=== PATIENT | male | born 1985 | race Caucasian/White ===

== ENCOUNTER 2016-05-29 16:41 | Inpatient (IN) | payer MEDICAID, OTHER ==
--- NOTE | 2016-05-29 17:13 | ED ---
General Adult HPI - General Chief complaint: Psychiatric Symptoms Stated complaint: mental health Time Seen by Provider: 05/29/16 16:57 Source: patient, RN notes reviewed Mode of arrival: ambulatory Limitations: no limitations - History of Present Illness Initial comments: Patient 31-year-old male who presents emergency room today with a chief complaint of suicidal ideation. Patient does admit that he's been having increased thoughts of hurting himself. He gives an example of driving in traffic and making it look like an accident.Patient states that he's been under a lot of pressure and stress. States been drinking off and on. States last drink last night. Patient denies any homicidal thoughts or plans. Denies any auditory or visual hallucinations. Denies any other complaints associated symptoms. - Related Data Home Medications Medication Instructions Recorded Confirmed No Known Home Medications [No 05/29/16 05/29/16 Known Home Medications] Allergies Allergy/AdvReac Type Severity Reaction Status Date / Time No Known Allergies Allergy Verified 05/29/16 16:59 Review of Systems ROS Statement: Those systems with pertinent positive or pertinent negative responses have been documented in the HPI. ROS Other: All systems not noted in ROS Statement are negative. Past Medical History Past Medical History: No Reported History History of Any Multi-Drug Resistant Organisms: None Reported Past Surgical History: Orthopedic Surgery Additional Past Surgical History / Comment(s): finger surgery Past Psychological History: Anxiety, Depression Smoking Status: Current every day smoker Past Alcohol Use History: Occasional Past Drug Use History: None Reported General Exam - General Exam Comments Initial Comments: General: The patient is awake and alert, in no distress, and does not appear acutely ill. Eye: Pupils are equal, round and reactive to light, extra-ocular movements are intact. No nystagmus. There is normal conjunctiva bilaterally. No signs of icterus. Ears, nose, mouth and throat: There are moist mucous membranes and no oral lesions. Neck: The neck is supple, there is no tenderness or JVD. Cardiovascular: There is a regular rate and rhythm. No murmur, rub or gallop is appreciated. Respiratory: Lungs are clear to auscultation, respirations are non-labored, breath sounds are equal. No wheezes, stridor, rales, or rhonchi. Musculoskeletal: Normal ROM, no tenderness. Strength 5/5. Sensation intact. Pulses equal bilaterally 2+. Neurological: A&O x 3. CN II-XII intact, There are no obvious motor or sensory deficits. Coordination appears grossly intact. Speech is normal. Skin: Skin is warm and dry and no rashes or lesions are noted. Psychiatric: Cooperative. Limitations: no limitations Course Vital Signs 05/29/16 16:53 Temperature 98.2 F Pulse Rate 79 Respiratory 18 Rate Blood Pressure 133/79 O2 Sat by Pulse 98 Oximetry Medical Decision Making - Medical Decision Making Patient seen by mental here in the emergency room. They've recommended admit. Patient will sign himself in. - Lab Data Lab Results 05/29/16 Range/Units 17:01 Urine Opiates Screen Not Detected (NotDetected) Ur Oxycodone Screen Not Detected (NotDetected) Urine Methadone Screen Not Detected (NotDetected) Ur Propoxyphene Screen Not Detected (NotDetected) Ur Barbiturates Screen Not Detected (NotDetected) U Tricyclic Antidepress Not Detected (NotDetected) Ur Phencyclidine Scrn Not Detected (NotDetected) Ur Amphetamines Screen Not Detected (NotDetected) U Methamphetamines Scrn Not Detected (NotDetected) U Benzodiazepines Scrn Not Detected (NotDetected) Urine Cocaine Screen Not Detected (NotDetected) U Marijuana (THC) Screen Detected H (NotDetected) Disposition Clinical Impression: Suicidal ideation Disposition: TRANSFER TO PSYCH HOSP/UNIT Condition: Stable Time of Disposition: 19:40
[2016-05-29 21:33] VITALS: BMI 23.1
[2016-05-30] MEDS ORDERED: LORazepam 1 MG TAB PO PRN (04:46)
[2016-05-30] MEDS ORDERED: MAGNESIUM HYDROXIDE 2,400 MG/10 ML CUP PO PRN (04:46)
[2016-05-30] MEDS ORDERED: ZIPRASIDONE 20 MG VIAL IM PRN (04:46)
[2016-05-30] MEDS ORDERED: ACETAMINOPHEN TAB 325 MG TAB PO PRN (04:46)
[2016-05-30] MEDS ORDERED: MAG HYDROX/AL HYDROX/SIMETH 30 ML CUP PO PRN (04:46)
[2016-05-30] MEDS: NICOTINE 14MG/24HR PATCH TRANSDERM SCH ×2 (12:11→17:28)
--- NOTE | 2016-05-30 13:20 | CONS ---
DATE OF CONSULTATION: CHIEF COMPLAINT: Anxiety, depression. HISTORY OF PRESENT ILLNESS: It is requested I see this gentleman in consult, but he is not available at this time. He has a past history of hypertension and an old collarbone fracture on the left. He has not been seen in the office for some time. He will be reassessed for his history and physical once he becomes available.
[2016-05-30 14:38] LABS: Appearance,Urine Clear (Clear); Bilirubin,Urine Negative (Negative); Glucose,Urine (UA) Negative (Negative); Ketones,Urine Negative (Negative); Leukocyte Esterase,Urine Negative (Negative); Nitrite,Urine Negative (Negative); Protein,Urine Negative (Negative); Specific Gravity,Urine 1.004 (1.001-1.035); UA Billing (MACRO vs. MICRO) CHEM; Urobilinogen,Urine <2.0 mg/dL (<2.0)
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
[2016-05-30] MEDS: SERTRALINE 50 MG TAB PO SCH (17:24)
[2016-05-31 08:36] LABS: Basophils # (A) 0.1 k/uL (0-0.2); Basophils % (A) 0 %; CH 30.9; CHCM 32.8; Eosinophils # (A) 0.2 k/uL (0-0.7); Eosinophils % (A) 1 %; HCT 41.5 % (39.0-53.0); HGB 13.7 gm/dL (13.0-17.5); Luc # (Auto) 0.14; Luc % (Auto) 1; Lymphocytes # (A) 1.9 k/uL (1.0-4.8); Lymphocytes % (A) 12 %; MCH 31.2 pg (25.0-35.0); MCV 94.5 fL (80.0-100.0); Monocytes # (A) 0.7 k/uL (0-1.0); Monocytes % (A) 5 %; Neutrophils # (A) 12.4 k/uL (1.3-7.7); Neutrophils % (A) 81 %; RBC 4.39 m/uL (4.30-5.90); RDW 12.4 % (11.5-15.5); WBC 15.3 k/uL (3.8-10.6); WBC (Perox) 15.83
[2016-05-31] MEDS: NICOTINE 14MG/24HR PATCH TRANSDERM SCH (09:03)
[2016-05-31] MEDS: SERTRALINE 50 MG TAB PO SCH (09:03)
[2016-05-31 11:09] LABS: ALT 25 U/L (21-72); AST 28 U/L (17-59); Alkaline Phosphatase 48 U/L (38-126); Anion Gap 11 mmol/L; Blood Urea Nitrogen 13 mg/dL (9-20); Calcium 9.6 mg/dL (8.4-10.2); Carbon Dioxide 27 mmol/L (22-30); Chloride 103 mmol/L (98-107); Glucose 92 mg/dL (74-99); Non-African American GFR(MDRD) >60 (>60 ml/min/1.73 sqM); Potassium 4.8 mmol/L (3.5-5.1); Sodium 141 mmol/L (137-145); Total Bilirubin 1.4 mg/dL (0.2-1.3); Total Protein 7.3 g/dL (6.3-8.2)
--- NOTE | 2016-05-31 17:15 | P.PN ---
Progress Note - Text Interval history: Patient reports that he had visiting with his last night. He relates that she would be the one for a family meeting. He seems to be tolerating the Zoloft fine. His mood overall seems to be improved. We did discuss the importance of keeping his sobriety. He does talk about a new job upcoming in 2 weeks. Mental status exam: He is alert and cooperative with the interview. His speech is fluent, not rapid or pressured. Thought processes organized. His affect does show range. Mood overall seems to be improved. He denies any thoughts of harm to self or others. No evidence of psychosis or agitation. Caro: Patient will be maintained on current dose of Zoloft which she appears to be tolerating fine. Dr. Peoples or colleague will be initiating care this patient starting tomorrow. Continue to monitor his mood and for any medication side effects.
[2016-06-01] MEDS: SERTRALINE 50 MG TAB PO SCH (08:35)
[2016-06-01] MEDS: NICOTINE 14MG/24HR PATCH TRANSDERM SCH (08:35)
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
[2016-06-02 06:36] VITALS: RESP 16; TEMP 98.2
[2016-06-02] MEDS: NICOTINE 14MG/24HR PATCH TRANSDERM SCH (09:06)
[2016-06-02] MEDS: SERTRALINE 50 MG TAB PO SCH (09:07)
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
[2016-06-03 06:30] VITALS: BP 105/64; PULSE 71
[2016-06-03] MEDS: NICOTINE 14MG/24HR PATCH TRANSDERM SCH (08:54)
[2016-06-03] MEDS: SERTRALINE 50 MG TAB PO SCH (08:54)
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
== END 2016-06-03 12:27 | disposition home or self-care (01) | DRG 881 ==
LOC: EC 16:41 → 3MHU 19:49
PROVIDERS: ADMIT Psychiatry & Neurology Psychiatry; ATTEND Psychiatry & Neurology Psychiatry
DX: F32.9 Major depressive disorder, single episode, unspecified (principal); R45.851 Suicidal ideations; F10.94 Alcohol use, unspecified with alcohol-induced mood disorder; I10 Essential (primary) hypertension; F41.0 Panic disorder [episodic paroxysmal anxiety]; Z79.899 Other long term (current) drug therapy; Z81.1 Family history of alcohol abuse and dependence
CPT/HCPCS: 80053; 80306; 81003; 82075; 84443; 85025; 99285

== ENCOUNTER 2019-07-28 10:17 | Inpatient (IN) | payer OTHER ==
[2019-07-28] MEDS ORDERED: DIPH,PERTUS(ACELL)TETVAC-LF 0.5 ML VIAL IM ONE (10:18)
[2019-07-28] MEDS ORDERED: fentaNYL (PF) 50 MCG/ML 2 ML AMP IVP STA (10:19)
[2019-07-28 10:23] LABS: Glucose,Whole Blood 88 mg/dL (75-99)
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
[2019-07-28 10:37] LABS: Basophils # (A) 0.1 k/uL (0-0.2); Basophils % (A) 1 %; Eosinophils # (A) 0.1 k/uL (0-0.7); Eosinophils % (A) 2 %; HCT 40.8 % (39.0-53.0); HGB 13.7 gm/dL (13.0-17.5); Lymphocytes # (A) 2.4 k/uL (1.0-4.8); Lymphocytes % (A) 40 %; MCH 33.4 pg (25.0-35.0); MCHC 33.6 g/dL (31.0-37.0); MCV 99.2 fL (80.0-100.0); Mean Platelet Volume 7.4; Monocytes # (A) 0.3 k/uL (0-1.0); Monocytes % (A) 5 %; Neutrophils % (A) 49 %; Platelet Count 261 k/uL (150-450); RBC 4.11 m/uL (4.30-5.90); RDW 11.8 % (11.5-15.5); WBC 6.1 k/uL (3.8-10.6)
--- NOTE | 2019-07-28 10:47 | XR ---
EXAMINATION TYPE: XR pelvis AP view DATE OF EXAM: 07/28/2019 COMPARISON: NONE HISTORY: Pain The osseous structures are intact and the joint spaces are preserved. No acute fracture is seen. Vi sualized bowel gas pattern is nonspecific. Vascular calcification in the pelvis. IMPRESSION: 1. No acute fracture.
[2019-07-28 10:48] LABS: ALT 13 U/L (4-49); AST 30 U/L (17-59); African American GFR (CKD) >90 (>60 ml/min/1.73 sqM); Albumin 4.2 g/dL (3.5-5.0); Alkaline Phosphatase 43 U/L (38-126); Amylase 113 U/L (30-110); Anion Gap 8 mmol/L; Blood Urea Nitrogen 4 mg/dL (9-20); Calcium 8.9 mg/dL (8.4-10.2); Carbon Dioxide 24 mmol/L (22-30); Chloride 110 mmol/L (98-107); Glucose 84 mg/dL (74-99); Non-African American GFR(CKD) >90 (>60 ml/min/1.73 sqM); Potassium 4.1 mmol/L (3.5-5.1); Sodium 142 mmol/L (137-145); Total Bilirubin 0.5 mg/dL (0.2-1.3); Total Protein 6.9 g/dL (6.3-8.2)
[2019-07-28 10:49] LABS: INR 0.9 (<1.2); Partial Thromboplastin Time 23.3 sec (22.0-30.0); Prothrombin Time 9.9 sec (9.0-12.0)
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
[2019-07-28 10:58] LABS: Alcohol 166 mg/dL
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
[2019-07-28 11:48] LABS: Appearance,Urine Clear (Clear); Bilirubin,Urine Negative (Negative); Blood,Urine Negative (Negative); Color,Urine Yellow; Glucose,Urine (UA) Negative (Negative); Ketones,Urine Trace (Negative); Leukocyte Esterase,Urine Negative (Negative); Mucus,Urine Occasional /hpf; Nitrite,Urine Negative (Negative); Protein,Urine 1+ (Negative); RBC,Urine 3 /hpf (0-5); Urobilinogen,Urine <2.0 mg/dL (<2.0); WBC,Urine 1 /hpf (0-5)
[2019-07-28 11:49] LABS: Creatine Kinase 84 U/L (55-170)
[2019-07-28 12:02] LABS: Troponin I <0.012 ng/mL (0.000-0.034)
[2019-07-28 12:03] LABS: Cocaine Screen,Urine Not Detected (NotDetected); Phencyclidine Screen,Urine Not Detected (NotDetected); Urn Cannabinoid Scrn Detected (NotDetected)
[2019-07-28 12:04] LABS: Amphetamine Screen,Urine Not Detected (NotDetected); Barbiturate Screen,Urine Not Detected (NotDetected); Benzodiazepines Screen,Urine Not Detected (NotDetected); Methadone Screen, Urine Not Detected (NotDetected); Opiate Screen,Urine Not Detected (NotDetected); Oxycodone Screen, Urine Not Detected (NotDetected); Tricyclic Antidepressant,Urine Not Detected (NotDetected)
[2019-07-28] MEDS ORDERED: ACETAMINOPHEN TAB 325 MG TAB PO PRN (12:04)
[2019-07-28] MEDS ORDERED: NALOXONE 0.4 MG/ML 1 ML VIAL IV PRN (12:04)
[2019-07-28] MEDS ORDERED: KETOROLAC 30 MG/ML 1 ML VIAL IVP PRN (12:04)
[2019-07-28] MEDS ORDERED: SODIUM CHLORIDE 0.9% 1,000 ML IV SCH (12:15)
[2019-07-28] MEDS: HYDROmorphone 0.5 MG/0.5 ML SYRINGE IVP PRN ×2 (12:32→20:29)
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
[2019-07-28 20:36] VITALS: RESP 16
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
[2019-07-29 09:27] LABS: HCT 41.4 % (39.0-53.0); HGB 13.2 gm/dL (13.0-17.5); MCHC 31.8 g/dL (31.0-37.0); MCV 100.8 fL (80.0-100.0); Mean Platelet Volume 7.8; Platelet Count 217 k/uL (150-450); RBC 4.11 m/uL (4.30-5.90); RDW 11.7 % (11.5-15.5); WBC 8.5 k/uL (3.8-10.6)
[2019-07-29 09:30] VITALS: TEMP 98
[2019-07-29 09:34] LABS: Amylase 55 U/L (30-110)
[2019-07-29 12:00] VITALS: BP 105/65; PULSE 59
--- NOTE | 2019-07-29 15:19 | P.PN ---
Progress Note - Text Progress Note Date: 07/29/19 Patient's pancreatic enzymes have normalized. He appears to show no signs of alcohol withdrawal. His hemoglobin is stable. He is medically cleared for discharge pending trauma surgery recommendations.
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
== END 2019-07-29 16:04 | disposition home or self-care (01) | DRG 552 ==
LOC: EC 10:17 → SUPCPDRO 10:17 → 3SCARD 12:04 → OBSVTOIN 07-29 09:31
PROVIDERS: ADMIT Surgery; ATTEND Surgery
DX: M51.27 Other intervertebral disc displacement, lumbosacral region (principal); I10 Essential (primary) hypertension; S30.1XXA Contusion of abdominal wall, initial encounter; F10.129 Alcohol abuse with intoxication, unspecified; F17.210 Nicotine dependence, cigarettes, uncomplicated; V13.4XXA Pedal cycle driver injured in collision with car, pick-up truck or van in traffic accident, initial encounter; Y90.6 Blood alcohol level of 120-199 mg/100 ml; Y92.410 Unspecified street and highway as the place of occurrence of the external cause; Y93.55 Activity, bike riding; Z79.899 Other long term (current) drug therapy; Z82.49 Family history of ischemic heart disease and other diseases of the circulatory system; Z83.3 Family history of diabetes mellitus; R01.1 Cardiac murmur, unspecified; R40.2413 Glasgow coma scale score 13-15, at hospital admission
CPT/HCPCS: 36415; 70450; 71045; 71260; 72125; 72170; 74177; 80053; 80306; 80320; 81001; 82150; 82550; 82553; 83605; 83690; 84484; 85025; 85027; 85610; 85730; 86850; 86900; 86901; 90471; 90715; 96374; 96375; 99291

== ENCOUNTER 2020-08-20 09:37 | Emergency (ER) | payer OTHER ==
[2020-08-20 09:54] VITALS: BP 110/63; PULSE 80; RESP 18; TEMP 97.9
[2020-08-20] MEDS ORDERED: IBUPROFEN 600 MG TAB PO STA (10:09)
[2020-08-20] MEDS ORDERED: BACITRACIN OINT 1 EACH PACKET TOPICAL ONE (10:10)
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
--- NOTE | 2020-08-20 10:55 | XR ---
EXAMINATION TYPE: XR shoulder complete RT DATE OF EXAM: 08/20/2020 CLINICAL HISTORY: Fall TECHNIQUE: Three views of the right shoulder are obtained. COMPARISON: None. FINDINGS: There is a mildly displaced fracture of the distal right clavicle. This does not extend int o the acromioclavicular joint which appears preserved. The proximal humerus is intact. The acromion p rocess appears intact. The glenoid fossa appears intact. No right apical pneumothorax of the visualiz ed portions of the right lung. IMPRESSION: 1. Mildly displaced fracture of the distal right clavicle. This does not extend into the acromioclavi cular joint.
[2020-08-20] MEDS ORDERED: ACET/COD 300 MG/30 MG STARTER PACK 6 TAB BTL PO STA (11:15)
== END 2020-08-20 11:25 | disposition home or self-care (01) ==
LOC: EC 09:37
DX: S06.0X0A Concussion without loss of consciousness, initial encounter (principal); S42.031A Displaced fracture of lateral end of right clavicle, initial encounter for closed fracture; S80.211A Abrasion, right knee, initial encounter; S60.812A Abrasion of left wrist, initial encounter; I10 Essential (primary) hypertension; F17.200 Nicotine dependence, unspecified, uncomplicated; V87.8XXA Person injured in other specified noncollision transport accidents involving motor vehicle (traffic), initial encounter; Y92.89 Other specified places as the place of occurrence of the external cause
CPT/HCPCS: 99283

== ENCOUNTER 2020-11-03 05:16 | Inpatient (IN) | payer MEDICAID, OTHER ==
--- NOTE | 2020-11-03 06:22 | ED ---
General Adult HPI - General Chief complaint: Psychiatric Symptoms Stated complaint: Mental Health Time Seen by Provider: 11/03/20 06:05 Source: patient, RN notes reviewed Mode of arrival: ambulatory Limitations: no limitations - History of Present Illness Initial comments: 35-year-old male with a past medical history of hypertension presents to the emergency room for chief complaint of suicidal ideation. Patient is a poor historian at this time, not speaking with his head covered with blankets. Patient was apparently found by police claiming a tall drop ridge and claimed suicidal intentions. Patient not confirming nor denying this.Patient has no other complaints at this time including shortness of breath, chest pain, abdominal pain, nausea or vomiting, headache, or visual changes. - Related Data Home Medications Medication Instructions Recorded Confirmed No Known Home Medications 11/03/20 11/03/20 Allergies Allergy/AdvReac Type Severity Reaction Status Date / Time No Known Allergies Allergy Verified 11/03/20 07:25 Review of Systems ROS Statement: Those systems with pertinent positive or pertinent negative responses have been documented in the HPI. ROS Other: All systems not noted in ROS Statement are negative. Past Medical History Past Medical History: Hypertension Additional Past Medical History / Comment(s): Murmur History of Any Multi-Drug Resistant Organisms: None Reported Past Surgical History: Orthopedic Surgery Additional Past Surgical History / Comment(s): R middle finger amp/I&D, R arm tendon repair. Past Anesthesia/Blood Transfusion Reactions: No Reported Reaction Past Psychological History: No Psychological Hx Reported Smoking Status: Current every day smoker Past Alcohol Use History: Occasional Past Drug Use History: Marijuana - Past Family History Father Family Medical History: Diabetes Mellitus, Hypertension Mother Family Medical History: No Reported History General Exam Limitations: no limitations General appearance: alert, in no apparent distress Head exam: Present: atraumatic Eye exam: Present: normal appearance, PERRL, EOMI. Absent: scleral icterus, conjunctival injection ENT exam: Present: normal exam, mucous membranes moist Neck exam: Present: normal inspection, full ROM Respiratory exam: Absent: respiratory distress Neurological exam: Present: alert Psychiatric exam: Present: depressed Course Vital Signs 11/03/20 05:30 Temperature 97.8 F Pulse Rate 95 Respiratory 16 Rate Blood Pressure 114/77 O2 Sat by Pulse 97 Oximetry Medical Decision Making - Medical Decision Making Patient to be admitted for psychiatric evaluation. He did sign himself in. Disposition Clinical Impression: Suicidal thoughts Disposition: TRANSFER TO PSYCH HOSP/UNIT Is patient prescribed a controlled substance at d/c from ED?: No Referrals: Phuc Taylor MD [Primary Care Provider] - 1-2 days Time of Disposition: 13:57
[2020-11-03] MEDS ORDERED: LORazepam 1 MG TAB PO PRN (14:52)
[2020-11-03] MEDS ORDERED: ACETAMINOPHEN TAB 325 MG TAB PO PRN (14:52)
[2020-11-03] MEDS ORDERED: MAGNESIUM HYDROXIDE 2,400 MG/10 ML CUP PO PRN (14:52)
[2020-11-03] MEDS ORDERED: MAG HYDROX/AL HYDROX/SIMETH 30 ML CUP PO PRN (14:52)
[2020-11-03] MEDS ORDERED: LORazepam 2 MG/ML INJ IM PRN (14:57)
[2020-11-03] MEDS ORDERED: HALOPERIDOL LACTATE 5 MG/ML 1 ML VIAL IM PRN (14:58)
[2020-11-04 07:46] LABS: Basophils # (A) 0.1 k/uL (0-0.2); Basophils % (A) 1 %; Eosinophils # (A) 0.2 k/uL (0-0.7); Eosinophils % (A) 3 %; HCT 43.5 % (39.0-53.0); HGB 14.7 gm/dL (13.0-17.5); Lymphocytes % (A) 26 %; MCH 33.9 pg (25.0-35.0); MCHC 33.8 g/dL (31.0-37.0); MCV 100.3 fL (80.0-100.0); Mean Platelet Volume 7.6; Monocytes # (A) 0.6 k/uL (0-1.0); Monocytes % (A) 8 %; Neutrophils # (A) 4.5 k/uL (1.3-7.7); Neutrophils % (A) 60 %; Platelet Count 289 k/uL (150-450); RBC 4.33 m/uL (4.30-5.90); RDW 11.4 % (11.5-15.5); WBC 7.4 k/uL (3.8-10.6)
[2020-11-04 08:01] LABS: ALT 15 U/L (4-49); AST 31 U/L (17-59); African American GFR (CKD) >90 (>60 ml/min/1.73 sqM); Albumin 4.4 g/dL (3.5-5.0); Alkaline Phosphatase 68 U/L (38-126); Anion Gap 9 mmol/L; Blood Urea Nitrogen 17 mg/dL (9-20); Calcium 9.8 mg/dL (8.4-10.2); Carbon Dioxide 24 mmol/L (22-30); Chloride 102 mmol/L (98-107); Glucose 62 mg/dL (74-99); Non-African American GFR(CKD) >90 (>60 ml/min/1.73 sqM); Potassium 4.4 mmol/L (3.5-5.1); Sodium 135 mmol/L (137-145); Total Protein 7.2 g/dL (6.3-8.2)
[2020-11-04] MEDS: NICOTINE 14MG/24HR PATCH TRANSDERM SCH (09:41)
[2020-11-04] MEDS ORDERED: FLUoxetine HCL 20 MG CAP PO STA (11:26)
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
[2020-11-04 12:58] LABS: Hemoglobin A1C 4.7 % (4.0-6.0)
[2020-11-04 17:26] LABS: Cholesterol 230 mg/dL (0-200); LDL Cholesterol,Calculated 89.2 mg/dL (0.0-131.0)
--- NOTE | 2020-11-04 20:23 | CONS ---
CONSULTATION CHIEF COMPLAINT: Major depression. HISTORY OF PRESENT ILLNESS: This is another admission for this 35-year-old white male who was feeling suicidal. He was in the psych unit through 4 years ago. He is not taking the medication. REVIEW OF SYSTEMS: He has had no headaches, chest pain, shortness of breath, abdominal pain, diarrhea, melena, nausea, vomiting, hematemesis, melena, hematochezia, jaundice, renal failure, frequency, urgency, incontinence, diabetes, etc. HISTORY: Past medical history, family history and personal and social histories unremarkable and noncontributory otherwise. ALLERGIES: He is not allergic to any medication. MEDICATIONS: He is not taking any medications. PHYSICAL EXAMINATION: Blood pressure 142/85 with a pulse of 68. He is afebrile in general appeared to be tall, slender and in no acute distress. Skin color is normal. Skin is warm, dry. Lymph nodes are not enlarged. Head, ears, eyes, nose, mouth and throat were normal. Neck veins are not distended. Thyroid is not enlarged. Chest is clear. Cardiac exam is normal. The abdomen is soft and nontender. Extremities are normal. Neurologically he is intact. DIAGNOSIS: Major depression. RECOMMENDATIONS: None. MMODL / IJN: [id number] /
[2020-11-05] MEDS: NICOTINE 14MG/24HR PATCH TRANSDERM SCH (08:38)
[2020-11-05] MEDS ORDERED: FLUoxetine HCL 10 MG CAP PO SCH (09:00)
--- NOTE | 2020-11-05 11:51 | P.PN ---
Progress Note - Text Progress Note Date: 11/05/20 Interval History: Patient was seen in group and was directable and agreeable to speak with commercial loan underwriter in the office. The patient reports that he is feeling better. He states that taking this time away from his home has given him a better appreciation for his home and he plans to clean his living space as soon as he is discharged. He also explains to this provider that he has undesired to live as he wants to be a better father to his children and his father has ever been to him. He is currently not reporting any suicidal or homicidal ideation, intention, and/or plan. He is not endorsing any auditory or visualizations. He is not reporting any paranoia or delusions. The patient has been adherent with his medications and is not endorsing any significant side effects at this time. He has been attending groups with participation. He reports no issues regarding his sleep or his appetite. In regards to his alcohol use, the patient was counseled in length on decreasing his alcohol use. The patient reports that he has goals in mind to do so and has reviewed some pamphlets or handed to him. He is not interested in medical management at this time. Mental Status Exam: General Appearance: Patient appears to be stated age is alert, directable, and cooperative. Behavior: Patient is calmly seated without any agitated behavior. Psychomotor activity is normal. Eye contact is appropriate. Speech: Patient's speech is fluent and nonpressured. Mood/Affect: Mood is improving mildly, affect is congruent and constricted. Suicidality/Homicidality: Patient denies having any suicidal or homicidal ideation intent or plan. Perceptions: Patient denies any visual hallucinations and denies any auditory hallucinations Though content/process: There is no evidence of any delusional thought content and thought process is linear and goal-directed. Memory and concentration: AOX3, grossly intact for the purposes of this session Judgment and insight: Improving mildly Vital Signs Temp 97.7 F 11/04/20 06:46 Pulse 68 11/04/20 06:46 Resp 18 11/04/20 06:46 BP 112/57 11/04/20 06:46 Pulse Ox 97 11/03/20 05:30 Laboratory Results - Last 24 Hours 11/04/20 11/04/20 06:40 06:[address] Glu mg/dL 88 Hemoglobin A1c 4.7 Triglycerides 129.0 Cholesterol 230 H LDL Cholesterol, Calc 89.2 VLDL Cholesterol, Calc 25.80 HDL Cholesterol 115.0 H Cholesterol/HDL Ratio 2.00 Assessment Major depressive disorder, recurrent, severe, with anxious features Alcohol use disorder Nicotine dependence Cannabis use Plan: -Patient continues to meet criteria for inpatient psychiatric admission for symptom stabilization and safety. Patient has signed adult voluntary form and medication consent and was placed in patient's chart. -Medications: Increase Prozac to 40 mg by mouth daily for depression/anxiety -When necessary Ativan and Haldol for agitation/aggression. -NRT - nicotine patch -SW on board for discharge planning. Encouraged the patient to participate in milieu.
[2020-11-06 07:15] VITALS: RESP 16; TEMP 98.3
[2020-11-06] MEDS: NICOTINE 14MG/24HR PATCH TRANSDERM SCH (08:57)
[2020-11-06 08:58] VITALS: BP 126/63; PULSE 97
[2020-11-06] MEDS ORDERED: FLUoxetine HCL 20 MG CAP PO SCH (09:00)
--- NOTE | 2020-11-06 12:40 | P.DS ---
Providers Date of admission: 11/03/20 14:47 Expected date of discharge: 11/06/20 Attending physician: Miguel Ángel John MD Consults: 11/03/20 14:52 Consult Physician Routine Consulting Provider: Phuc Taylor Consult Reason/Comments: medical mangement Do you want consulting provider notified?: Yes Primary care physician: Phuc Taylor - Discharge Diagnosis(es) (1) Major depressive disorder, recurrent, severe without psychotic features Current Visit: Yes Status: Acute Priority: High (2) Anxiety disorder, unspecified Current Visit: Yes Status: Chronic Priority: Medium (3) Alcohol use disorder Current Visit: Yes Status: Chronic Priority: Medium (4) Cannabis use disorder, mild, abuse Current Visit: Yes Status: Chronic Priority: Medium Hospital Course: Admission HPI: Patient is a , unemployed, 35-year-old male with significant history of depression who was admitted for depression and suicidal ideation Patient presented to the hospital on 11/03/2020, brought into the [facility] apartment on his own volition for worsening depression. As per evaluation in the emergency department, the patient was noted to be extremely depressed and endorsing suicidal ideation. She reported feeling like he had no support system and that he has given up on life. Upon evaluation on the psychiatric unit, the patient reports that over the past few weeks, the patient has been expressing significant symptoms of depression. He states that he has been feeling increasingly tired, overwhelmed, lacking motivation, and has not been addressing his daily chores, hygiene, and grooming. He endorses significant feelings of hopelessness and helplessness. On top of this, the patient has been endorsing increased suicidal ideation. He reports th at prior to this admission, he ended up [place] railway [place]. He reports when he was up there he became scared and was convinced by his friend whom he was on the phone with to come back down. The patient reports that he has been calling the suicide hotline a couple of times over the past few weeks. Patient expresses that he feels like he is "extremely lonely." The sujit ent identifies numerous stressors but states that when his largest stressors as his work. 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 The patient is not endorsing any prior attempts at suicide. He reports no homicidal ideation, intention, and/or plan. In regards to psychotic symptoms, the patient is not endorsing any auditory or visual hallucinations. He is denying any paranoia or other delusions. The patient denies any significant history of bipolar symptoms. The patient does admit that he has been drinking heavily. He reports that typically he drinks 1 drink per day but prior to this admission to the hospital, he drank at least 11 alcoholic beverages. He reports that occasionally he will drink one whole fifth of liquor by himself. In regards to trauma, the patient does report that he was raised by a father who was alcoholic. He was noted in the ED to report that his father had 13 kids and was uninvolved with them by the time he was born. He also reports that his father was verbally abusive towards him. He also states that he has witnessed his father. Physically abusive to his mother. Despite this, the patient is not endorsing any significant symptoms of PTSD. He reports no hypervigilance, reexperiencing phenomenon, or avoidance. Patient states that he was previously treated for mental illness back in 2017 on this unit for management of depression and anxiety. He was placed on a regimen of Zoloft back then. He reports that he has not been on any psychiatric medications for the past one month. The patient currently denies any outpatient psychiatric follow-up. He reports that he stopped following up with his outpatient appointments in 2017 due to insurance issues. Patient denies any history of suicide attempts in the past. Hospital course: Upon admission to the unit patient was initially presenting as depressed, with poor hygiene and grooming, with a dysphoric and withdrawn affect. Patient was however directable and agreeable to commence treatment. Patient got along well with other patients on the unit and followed unit protocol. Patient was compliant with the medications and denied any side effects throughout hospital course. Patient was started on Prozac for management of his depression and anxiety. Patient spoke of his stressors and engaged in therapy both group and individual. Patient was also seen by medical team for history and physical exam. Patient's Prozac was eventually titrated to a final dose of 40 mg daily. Throughout the course of the hospitalization patient gradually improved with regards to mood and anxiety. Patient also became more future oriented and gained and appreciation for wanting to live. The patient reported that he wanted to be there for his children. On the day of discharge patient denied any suicidal or homicidal ideations intent or plan denied any auditory or visual hallucinations. Patient endorsed wanting to live for himself and for his family. The patient denied any access to guns or weapons. Patient denied any paranoia and did not endorse any delusions. Patient does not have a significant history of substance abuse however was counseled on abstaining from all substances including alcohol and marijuana. Patient was offered however declined inpatient substance-abuse rehab. Patient was also counseled on the medications and need for regular compliance and was encouraged to follow-up with their outpatient appointment for mental health and also for primary care. Prior to discharge a family meeting will be arranged by addiction social worker to answer any questions and ensure safety upon discharge. Mental status exam: General Appearance: Patient appears to be stated age is alert, pleasant, and cooperative. Patient is in no acute distress and has fair hygiene and grooming. Behavior: Patient is calmly seated without any agitated behavior Speech: Patient's speech is fluent and nonpressured. Mood/Affect: Patient reports their mood is "much better", affect is congruent and euthymic. Suicidality/Homicidality: Patient denies having any suicidal or homicidal id eation intent or plan. Perceptions: Patient denies any auditory or visual hallucinations. Though content/process: There is no evidence of any delusional thought content and thought process is linear and goal-directed. Patient is future oriented. Memory and concentration: AOX3, grossly intact for the purposes of this session. Can spell "WORLD" backwards correctly. Judgment and insight: Improved with guarded prognosis Vital Signs Temp 98.3 F 11/06/20 07:04 Pulse 97 11/06/20 08:58 Resp 16 11/06/20 07:04 BP 126/63 11/06/20 08:58 Pulse Ox 97 11/03/20 05:30 Impression: Major depressive disorder, recurrent, severe, with anxious features Alcohol use disorder Nicotine dependence Cannabis use disorder Plan: -Continue with discharge today as patient has improved and stabilized psychiatrically and is not currently an imminent threat to himself and/or others. Patient will remain at chronically elevated risk for harm to self and/or others due to his polysubstance abuse. -Continue medications: Prozac 40 mg by mouth daily for depression/anxiety. The patient was offered ReVia for alcohol cessation to which she does not want to take at this time. -Patient was counseled on the need for medication compliance and appropriate follow-up at mental health and also primary care for medical issues. Patient verbalized understanding and agreed. -Social work to arrange for and conduct family meeting to ensure safety upon discharge and answer any questions/concerns. Social work also to arrange for patients follow up appointments for psychiatric care along with follow up with primary care provider. -Patient counseled on abstaining from recreational drugs and marijuana and alcohol. Was informed/educated on the adverse effects on their physical and mental health. Patient verbally agreed and understood. Patient was offered substance abuse treatment however declined at this time. -Patient was instructed to return to the hospital or seek immediate medical care if their psychiatric or medical symptoms do worsen or reoccur. -Psychoeducation and supportive therapy provided to patient. Risks and benefits of pharmacological treatment versus the risks and benefits of nontreatment weight and discussed. Informed consent discussion held. Common side effects of psychotropics discussed such as, but not limited to headache, GI disturbance, sexual dysfunction, movement disorders, sedation, and orthostatic hypotension. Life threatening and blackbox warnings of prescribed medications also discussed. Potential risks of operating a vehicle or heavy machinery discussed with patient at length. Advised on importance of compliance and a reliable and responsible manner. Patient advised to review FDA consumer labeling of all medications prior to taking. Patient verbalized understanding of potential risks, and agrees with current treatment plan. Patient advised to medically contact physician/emergency personnel if any acute changes in condition occur. Allergies Allergy/AdvReac Type Severity Reaction Status Date / Time No Known Allergies Allergy Verified 11/03/20 07:25 Laboratory Results WBC 7.4 k/uL (3.8-10.6) 11/04/20 06:40 RBC 4.33 m/uL (4.30-5.90) 11/04/20 06:40 Hgb 14.7 gm/dL (13.0-17.5) 11/04/20 06:40 Hct 43.5 % (39.0-53.0) 11/04/20 06:40 MCV 100.3 fL (80.0-100.0) H 11/04/20 06:40 MCH 33.9 pg (25.0-35.0) 11/04/20 06:40 MCHC 33.8 g/dL (31.0-37.0) 11/04/20 06:40 RDW 11.4 % (11.5-15.5) L 11/04/20 06:40 Plt Count 289 k/uL (150-450) 11/04/20 06:40 MPV 7.6 11/04/20 06:40 Neutrophils % 60 % 11/04/20 06:40 Lymphocytes % 26 % 11/04/20 06:40 Monocytes % 8 % 11/04/20 06:40 Eosinophils % 3 % 11/04/20 06:40 Basophils % 1 % 11/04/20 06:40 Neutrophils # 4.5 k/uL (1.3-7.7) 11/04/20 06:40 Lymphocytes # 2.0 k/uL (1.0-4.8) 11/04/20 06:40 Monocytes # 0.6 k/uL (0-1.0) 11/04/20 06:40 Eosinophils # 0.2 k/uL (0-0.7) 11/04/20 06:40 Basophils # 0.1 k/uL (0-0.2) 11/04/20 06:40 Sodium 135 mmol/L (137-145) L 11/04/20 06:40 Potassium 4.4 mmol/L (3.5-5.1) 11/04/20 06:40 Chloride 102 mmol/L (98-107) 11/04/20 06:40 Carbon Dioxide 24 mmol/L (22-30) 11/04/20 06:40 Anion Gap 9 mmol/L 11/04/20 06:40 BUN 17 mg/dL (9-20) 11/04/20 06:40 Creatinine 0.65 mg/dL (0.66-1.25) L 11/04/20 06:40 Est GFR (CKD-EPI)AfAm >90 (>60 ml/min/1.73 sqM) 11/04/20 06:40 Est GFR (CKD-EPI)NonAf >90 (>60 ml/min/1.73 sqM) 11/04/20 06:40 Glucose 62 mg/dL (74-99) L 11/04/20 06:[address] Glu mg/dL 88 11/04/20 06:40 Hemoglobin A1c 4.7 % (4.0-6.0) 11/04/20 06:40 Calcium 9.8 mg/dL (8.4-10.2) 11/04/20 06:40 Total Bilirubin 2.0 mg/dL (0.2-1.3) H 11/04/20 06:40 AST 31 U/L (17-59) 11/04/20 06:40 ALT 15 U/L (4-49) 11/04/20 06:40 Alkaline Phosphatase 68 U/L (38-126) 11/04/20 06:40 Total Protein 7.2 g/dL (6.3-8.2) 11/04/20 06:40 Albumin 4.4 g/dL (3.5-5.0) 11/04/20 06:40 Triglycerides 129.0 mg/dL (0.0-149.0) 11/04/20 06:40 Cholesterol 230 mg/dL (0-200) H 11/04/20 06:40 LDL Cholesterol, Calc 89.2 mg/dL (0.0-131.0) 11/04/20 06:40 VLDL Cholesterol, Calc 25.80 mg/dL (5.00-40.00) 11/04/20 06:40 HDL Cholesterol 115.0 mg/dL (40.0-60.0) H 11/04/20 06:40 Cholesterol/HDL Ratio 2.00 11/04/20 06:40 TSH 1.050 mIU/L (0.465-4.680) 11/04/20 06:40 Coronavirus (PCR) Not Detected (Not Detectd) 11/03/20 13:24 Patient Condition at Discharge: Stable Plan - Discharge Summary Discharge Rx Participant: No New Discharge Prescriptions: New FLUoxetine HCL [PROzac] 40 mg PO DAILY 30 Days cap Discharge Medication List FLUoxetine HCL [PROzac] 40 mg PO DAILY 30 Days cap 11/06/20 [Rx] Follow up Appointment(s)/Referral(s): Phuc Taylor MD [Primary Care Provider] - 1-2 days Patient Instructions/Handouts: How to Stop Smoking (DC), Depression (DC), Alcohol Intoxication (DC) Activity/Diet/Wound Care/Special Instructions: Activity and diet as tolerated. Avoid the use of street drugs and alcohol. Take all medications as prescribed. When you are in need of refills on your medications please contact your medical provider and/or outpatient psychiatrist to have this done. Please go to scheduled outpatient appointment for aftercare treatment. If symptoms return or become worse, call the crisis line at and/or go to the nearest emergency room for evaluation. Discharge Disposition: HOME SELF-CARE
== END 2020-11-06 14:30 | disposition home or self-care (01) | DRG 885 ==
LOC: EC 05:16 → 3MHU 14:47
PROVIDERS: ADMIT Psychiatry & Neurology Psychiatry; ATTEND Psychiatry & Neurology Psychiatry
DX: F33.2 Major depressive disorder, recurrent severe without psychotic features (principal); R45.851 Suicidal ideations; Z20.822 Contact with and (suspected) exposure to COVID-19; F10.10 Alcohol abuse, uncomplicated; F12.10 Cannabis abuse, uncomplicated; F17.210 Nicotine dependence, cigarettes, uncomplicated; F41.9 Anxiety disorder, unspecified; I10 Essential (primary) hypertension; Z79.899 Other long term (current) drug therapy; Z81.1 Family history of alcohol abuse and dependence; Z82.49 Family history of ischemic heart disease and other diseases of the circulatory system; Z83.3 Family history of diabetes mellitus
CPT/HCPCS: 80053; 80061; 82075; 83036; 84443; 85025; 87635; 99285